=== PATIENT | female | born 2000 | race Caucasian/White ===

== ENCOUNTER 2019-11-24 15:23 | Emergency (ER) | payer OTHER ==
[~2019-11-24] VITALS: Ht 167.6 cm; Wt 78.0 kg
[2019-11-24] MEDS ORDERED: IV NORMAL SALINE 1000ML BAG 1,000 ML IV ONE (15:30)
--- NOTE | 2019-11-24 15:48 | PHYS DOC ---
Past Medical History Additional Information: nonsmoker Adult General Chief Complaint Chief Complaint: SYNCOPE HPI HPI Patient is 19-year-old female with past medical history of anxiety and depression that is presenting to the emergency department status post syncopal episode at home. Patient is interviewed with boyfriend at bedside. He boyfriend states that they were laying on the couch watching a movie and smoking marijuana when he noticed that she stopped responding, she got rigid, her eyes rolled into the back of her head, and she turned white. He states that this lasted for 5 or 6 seconds and she returned to baseline immediately after the episode. The patient states that she has never had an episode like this before and has no family history of seizures or sudden cardiac . She has no complaints now although right after the episode she did feel like she had chest pain and some shortness of breath. Patient denies fall, trauma to the head or neck area. Review of Systems Review of Systems Constitutional: Denies fever or chills Eyes: Denies redness or eye pain HENT: Denies nasal congestion or sore throat Respiratory: Denies cough or shortness of breath Cardiovascular: Denies chest pain or palpitations GI: Denies abdominal pain, nausea, or vomiting : Denies dysuria or hematuria Musculoskeletal: Denies back pain or joint pain Integument: Denies rash or skin lesions Neurologic: Denies headache, focal weakness or sensory changes Complete systems were reviewed and found to be within normal limits, except as documented in this note. Current Medications Current Medications Current Medications Medications (Trade) Dose Ordered Sig/Marciano Start Time Stop Time Status Last Admin Dose Admin Albuterol/ Ipratropium (Duoneb) 3 ml 1X ONCE 11/24/19 16:15 11/24/19 16:16 DC 11/24/19 16:13 3 ML Sodium Chloride 1,000 ml @ 1,000 mls/hr 1X ONCE 11/24/19 15:30 11/24/19 16:29 DC 11/24/19 15:56 1,000 MLS/HR Allergies Allergies Allergies Coded Allergies Type Severity Reaction Last Updated Verified No Known Drug Allergies 11/24/19 No Physical Exam Physical Exam Constitutional: Well developed, well nourished, no acute distress, non-toxic a ppearance HENT: Normocephalic, atraumatic, oropharynx moist Eyes: PERRL, EOMI, conjunctiva normal, no discharge Neck: Normal range of motion, no tenderness, supple Cardiovascular: Heart rate normal, regular rhythm Lungs & Thorax: Diminished breath sounds in the bases, no wheezing Abdomen: Soft, no tenderness Skin: Warm, dry, no erythema, no rash Back: No tenderness, no CVA tenderness Extremities: No tenderness, ROM intact, no edema Neurologic: Alert and oriented X 3, normal motor function, normal sensory function, no focal deficits noted Psychologic: Affect normal, judgement normal, mood normal Current Patient Data Vital Signs Vital Signs Date Time Temp Pulse Resp B/P (MAP) Pulse Ox O2 Delivery O2 Flow Rate FiO2 11/24/19 16:57 101 16 134/65 (88) 97 Room Air Lab Values Laboratory Tests Test 11/24/19 15:45 11/24/19 15:50 11/24/19 15:58 Urine Collection Type Unknown Urine Color Yellow Urine Clarity Clear Urine pH 6.5 Urine Specific [place] 1.020 Urine Protein Negative mg/dL (NEG-TRACE) Urine Glucose (UA) Negative mg/dL (NEG) Urine Ketones (Stick) Negative mg/dL (NEG) Urine Blood Negative (NEG) Urine Nitrite Negative (NEG) Urine Bilirubin Negative (NEG) Urine Urobilinogen Dipstick 0.2 mg/dL (0.2 mg/dL) Urine Leukocyte Esterase Negative (NEG) Urine RBC 0 /HPF (0-2) Urine WBC 0 /HPF (0-4) Urine Squamous Epithelial Cells Occ /LPF Urine Bacteria 0 /HPF (0-FEW) Urine Mucus Slight /LPF Urine Opiates Screen Neg (NEG) Urine Methadone Screen Neg (NEG) Urine Barbiturates Neg (NEG) Urine Phencyclidine Screen Neg (NEG) Urine Amphetamine/Methamphetamine Neg (NEG) Urine Benzodiazepines Screen Neg (NEG) Urine Cocaine Screen Neg (NEG) Urine Cannabinoids Screen Pos (NEG) Urine Ethyl Alcohol Neg (NEG) White Blood Count 3.5 x10^3/uL (4.0-11.0) L Red Blood Count 4.63 x10^6/uL (3.50-5.40) Hemoglobin 13.9 g/dL (12.0-15.5) Hematocrit 41.0 % (36.0-47.0) Mean Corpuscular Volume 89 fL (79-100) Mean Corpuscular Hemoglobin 30 pg (25-35) Mean Corpuscular Hemoglobin Concent 34 g/dL (31-37) Red Cell Distribution Width 12.5 % (11.5-14.5) Platelet Count 250 x10^3/uL (140-400) Neutrophils (%) (Auto) 48 % (31-73) Lymphocytes (%) (Auto) 30 % (24-48) Monocytes (%) (Auto) 19 % (0-9) H Eosinophils (%) (Auto) 3 % (0-3) Basophils (%) (Auto) 1 % (0-3) Neutrophils # (Auto) 1.6 x10^3/uL (1.8-7.7) L Lymphocytes # (Auto) 1.0 x10^3/uL (1.0-4.8) Monocytes # (Auto) 0.6 x10^3/uL (0.0-1.1) Eosinophils # (Auto) 0.1 x10^3/uL (0.0-0.7) Basophils # (Auto) 0.0 x10^3/uL (0.0-0.2) Segmented Neutrophils % 38 % (35-66) Band Neutrophils % 2 % (0-9) Lymphocytes % 32 % (24-48) Monocytes % 20 % (0-10) H Eosinophils % 6 % (0-5) H Basophils % 2 % (0-3) Platelet Estimate Adequate (ADEQUATE) Sodium Level 140 mmol/L (136-145) Potassium Level 4.2 mmol/L (3.5-5.1) Chloride Level 103 mmol/L (98-107) Carbon Dioxide Level 26 mmol/L (21-32) Anion Gap 11 (6-14) Blood Urea Nitrogen 9 mg/dL (7-20) Creatinine 0.9 mg/dL (0.6-1.0) Estimated GFR (Cockcroft-Gault) 79.8 BUN/Creatinine Ratio 10 (6-20) Glucose Level 132 mg/dL (70-99) H Lactic Acid Level 1.6 mmol/L (0.4-2.0) Calcium Level 8.5 mg/dL (8.5-10.1) Magnesium Level 1.8 mg/dL (1.8-2.4) Total Bilirubin 0.2 mg/dL (0.2-1.0) Aspartate Amino Transferase (AST) 12 U/L (15-37) L Alanine Aminotransferase (ALT) 11 U/L (14-59) L Alkaline Phosphatase 57 U/L (46-116) Creatine Kinase 55 U/L (26-192) Total Protein 7.5 g/dL (6.4-8.2) Albumin 3.4 g/dL (3.4-5.0) Albumin/Globulin Ratio 0.8 (1.0-1.7) L POC Urine HCG, Qualitative Hcg negative (Negative) Laboratory Tests 11/24/19 15:50 Laboratory Tests 11/24/19 15:50 EKG EKG EKG at 1536 shows normal sinus rhythm at 96 bpm, no ST elevations Radiology/Procedures Radiology/Procedures PROCEDURE: CT HEAD WO CONTRAST CT scan of the head without contrast 11/16/2019 Clinical History: Seizures/syncope. Technique: Unenhanced, contiguous, 5 mm axial sections were obtained through the head. One or more of the following individualized dose reduction techniques were utilized for this study: 1. Automated exposure control. 2. Adjustment of the mA and/or kV according to patient size. 3. Use of iterative reconstruction technique. Findings: The ventricles and sulci are within normal limits in size and configuration. No focal area of abnormal attenuation is seen involving the brain parenchyma. No extra-axial fluid collection is seen. No skull fracture is seen. Impression: Negative study. Electronically signed by: Jaxon Conn MD (11/24/2019 4:53 PM) [facility] [place]: CHEST PA & LATERAL PA and lateral chest radiographs 11/24/2019 Clinical History: Shortness of breath for 3 days. PA and lateral digital radiographs of the chest were obtained. No previous studies are available for comparison. The cardiac and mediastinal silhouettes are within normal limits in size and configuration. No pulmonary infiltrate is seen. No pleural effusion or pneumothorax is noted. The osseous structures are grossly intact. Impression: No radiographic evidence of active cardiopulmonary disease. Electronically signed by: Jaxon Conn MD (11/24/2019 4:51 PM) [facility] [place] Course & Med Decision Making Course & Med Decision Making Pertinent Labs and Imaging studies reviewed. (See chart for details) Patient is a 19-year-old female with a past medical history of anxiety and depression and is presenting to the emergency department with an episode of syn cope earlier today. Cannot exclude seizure. Patient was seen and examined the bedside. Patient neurologically intact. Physical exam was significant only for diminished breath sounds in the bases. Breathing treatment ordered with interval improvement. Labs and imaging ordered. UDS positive for THC. Patient does reports episode occurred after smoking THC. Cannot exclude contaminated THC with synthetic THC/K2/potpourri. EKG at 1536 shows normal sinus rhythm at 96 bpm, no ST elevations. Labs at baseline. Mild neutropenia of unknown significance. Chest x-ray and head CT negative for acute pathology. Patient without further episodes during ED visit. Patient stable for discharge with outpatient follow-up with PCP/Neurology. Neurology referral provided. Discussed findings and plan with patient and friend, who acknowledge understanding and agreement. Dragon Disclaimer Dragon Disclaimer This electronic medical record was generated, in whole or in part, using a voice recognition dictation system. Departure Departure Impression: Primary Impression: Episode of syncope Disposition: 01 HOME, SELF-CARE Condition: STABLE Referrals: ROHINI ZUNIGA NP (PCP) JEFF GILMORE MD Patient Instructions: Marijuana Abuse-Brief, Seizure, Adult, [id number], Syncope, [id number] Problem Qualifiers Primary Impression: Episode of syncope Syncope type: unspecified Qualified Codes: R55 - Syncope and collapse CHRISTIANA WATTS DO Nov 24, 2019 15:47
[2019-11-24] MEDS ORDERED: IPRATRPIUM/ALBUTEROL 0.5/2.5MG 3 ML NEBU. NEB ONE ×2 (16:00→16:15)
[2019-11-24 16:05] LABS: BILIRUBIN,URINE NEGATIVE (NEG); CLARITY,URINE CLEAR; COLOR,URINE YELLOW; NITRITE,URINE NEGATIVE (NEG); PH,URINE 6.5; PROTEIN,URINE NEGATIVE (NEG-TRACE); UROBILINOGEN,URINE 0.2 mg/dL (0.2 mg/dL)
[2019-11-24 16:07] LABS: BASO % 1 % (0-3); EOS # 0.1 x10^3/uL (0.0-0.7); EOS % 3 % (0-3); HEMOGLOBIN 13.9 g/dL (12.0-15.5); LYMPH % 30 % (24-48); MEAN CORPUSCULAR HEMOGLOBIN 30 pg (25-35); MEAN CORPUSCULAR HGB CONC 34 g/dL (31-37); MEAN CORPUSCULAR VOLUME 89 fL (79-100); MONO # 0.6 x10^3/uL (0.0-1.1); MONO % 19 % (0-9); NEUT # 1.6 x10^3/uL (1.8-7.7); NEUT % 48 % (31-73); PLATELET COUNT 250 x10^3/uL (140-400); RED BLOOD COUNT 4.63 x10^6/uL (3.50-5.40); RED CELL DISTRIBUTION WIDTH 12.5 % (11.5-14.5); WHITE BLOOD COUNT 3.5 x10^3/uL (4.0-11.0)
[2019-11-24 16:12] LABS: BACTERIA,URINE 0 /HPF (0-FEW); RBC,URINE 0 /HPF (0-2); SQUAMOUS EPITHELIAL CELL,UR OCC /LPF; WBC,URINE 0 /HPF (0-4)
[2019-11-24 16:13] LABS: BARBITURATES NEG (NEG); BENZODIAZEPINES NEG (NEG); CANNABINOIDS POS (NEG); COCAINE NEG (NEG); METHADONE NEG (NEG); OPIATES NEG (NEG); PHENCYCLIDINE NEG (NEG)
[2019-11-24 16:17] LABS: CALCIUM 8.5 mg/dL (8.5-10.1); CREATININE 0.9 mg/dL (0.6-1.0); GFR 79.8; POTASSIUM 4.2 mmol/L (3.5-5.1)
[2019-11-24 16:17] LABS: AMPHETAMINE/METHAMPHETAMINE NEG (NEG)
[2019-11-24 16:23] LABS: ALBUMIN 3.4 g/dL (3.4-5.0); ALBUMIN/GLOBULIN RATIO 0.8 (1.0-1.7); MAGNESIUM 1.8 mg/dL (1.8-2.4); TOTAL BILIRUBIN 0.2 mg/dL (0.2-1.0); TOTAL PROTEIN 7.5 g/dL (6.4-8.2)
[2019-11-24 16:32] LABS: % BANDS 2 % (0-9); % BASOS 2 % (0-3); % EOS 6 % (0-5); % LYMPHS 32 % (24-48); % MONOS 20 % (0-10); % SEGS 38 % (35-66); PLT ESTIMATE ADEQUATE (ADEQUATE)
--- NOTE | 2019-11-24 16:54 | RAD ---
PA and lateral chest radiographs 11/24/2019 Clinical History: Shortness of breath for 3 days. PA and lateral digital radiographs of the chest were obtained. No previous studies are available for comparison. The cardiac and mediastinal silhouettes are within normal limits in size and configuration. No pulmonary infiltrate is seen. No pleural effusion or pneumothorax is noted. The osseous structures are grossly intact. Impression: No radiographic evidence of active cardiopulmonary disease. Electronically signed by: Jaxon Conn MD (11/24/2019 4:51 PM) [facility] [place]
--- NOTE | 2019-11-24 16:56 | RAD ---
CT scan of the head without contrast 11/16/2019 Clinical History: Seizures/syncope. Technique: Unenhanced, contiguous, 5 mm axial sections were obtained through the head. One or more of the following individualized dose reduction techniques were utilized for this study: 1. Automated exposure control. 2. Adjustment of the mA and/or kV according to patient size. 3. Use of iterative reconstruction technique. Findings: The ventricles and sulci are within normal limits in size and configuration. No focal area of abnormal attenuation is seen involving the brain parenchyma. No extra-axial fluid collection is seen. No skull fracture is seen. Impression: Negative study. Electronically signed by: Jaxon Conn MD (11/24/2019 4:53 PM) [facility] [place]
[2019-11-24 16:57] VITALS: BP 134/65
--- NOTE | 2019-11-26 06:13 | EKG ---
[facility] [address] [place] [address] Test Date: 2019-11-24 Test Time: 15:36:53 Pat Name: FRANCK BERG Department: Room: Gender: F [employer]: : 2000 Requested By: HCRISTIANA WATTS Order Number: [id number] Reading MD: Measurements Intervals [place] Rate: 96 P: 37 NV: 128 QRS: 52 QRSD: 92 T: 11 QT: 342 QTc: 438 Interpretive Statements SINUS RHYTHM NON SPECIFIC T ABNORMALITY BORDERLINE ECG No previous ECG available for comparison
== END 2019-11-24 17:00 | disposition home or self-care (01) ==
LOC: ER 15:23
DX: R55 Syncope and collapse (principal); F41.9 Anxiety disorder, unspecified; F32.9 Major depressive disorder, single episode, unspecified
CPT/HCPCS: 36415; 70450; 71046; 80053; 80307; 81001; 81025; 82550; 83605; 83735; 85007; 85025; 93005; 94640; 96360; 99285; J7030; J7620